=== PATIENT | female | born 1940 | race Caucasian/White ===

== ENCOUNTER → 2019-05-21 | Outpatient (CLI) | payer OTHER ==
--- NOTE | 2019-05-21 11:38 | KCIC ---
MRI Cervical Spine Without Contrast History: Cervical radiculopathy, pain in the upper extremities bilaterally Technique: Multiplanar, multi sequential noncontrast MR imaging was performed of the cervical spine. Comparison: None Findings: There is motion degradation. Cervical cord caliber is within normal limits without defined or expansile signal abnormality. Cervical vertebral body stature is overall maintained. There is very minimal grade 1 anterior spondylolisthesis C6-C7. There is fairly advanced C5-6 degenerative disc disease, to lesser at C6-7 and minimally at C3-C4. There is trace edema of the inferior C5 endplate likely reactive/degenerative in etiology. C2-C3: Spinal canal and neural foramina are adequate. C3-C4: Spinal canal and neural foramina are adequate. There is left greater than right facet degenerative change. C4-C5: There is severe facet degenerative change greater on the left. There is a very shallow posterior bulge. Spinal canal is adequate. Right neural foramen is adequate, mild narrowing of the left neural foramen. C5-C6: There is minimal disc osteophyte complex. There is severe facet degenerative change bilaterally. There is uncovertebral degenerative change greater on the right. Central canal is adequate about 11 mm. There is probable [id number] right and at least mild left neural foramina compromise, poorly characterized due to motion. C6-C7: There is minimal disc osteophyte complex and bulge. Central canal is adequate about 12 mm. There is bilateral facet hypertrophic change. There is uncovertebral degenerative change bilaterally. There is [id number] narrowing of the right neural foramen, left neural foramen probably minimally narrowed. C7-T1: Spinal canal and neural foramina are adequate. Impression: 1. There is no significant cervical spinal stenosis. Facet and uncovertebral degenerative change contributes to suspected [id number] neural foramina compromise on the right at C5-6 and C6-7 and to lesser degree on the left at these levels although somewhat poorly characterized due to motion. There is fairly advanced degenerative disc disease C5-6, to lesser degree at C6-7 and minimally at C3-4, mild spondylosis. Electronically signed by: Raimundo Miles MD (05/21/2019 11:35 AM) [id number]
== END | disposition home or self-care (01) ==
LOC: KCIC MRI 10:26
PROVIDERS: ATTEND Physical Medicine & Rehabilitation Pain Medicine
DX: M43.12 Spondylolisthesis, cervical region (principal); M50.11 Cervical disc disorder with radiculopathy, high cervical region; M48.02 Spinal stenosis, cervical region; M47.22 Other spondylosis with radiculopathy, cervical region; M25.78 Osteophyte, vertebrae
CPT/HCPCS: 72141